=== PATIENT | female | born 1990 | race African-American/Black ===

== ENCOUNTER 2016-11-11 13:17 | Emergency (ER) | payer SELFPAY ==
[2016-11-11 13:25] VITALS: BP 151/106
--- NOTE | 2016-11-11 13:45 | ER Document Report ---
ED Blood Sugar Problem - General Mode of Arrival: Ambulatory Information source: Patient TRAVEL OUTSIDE OF THE [place] IN LAST 30 DAYS: No - HPI Onset: Other - Refer to HPI note Similar symptoms previously: Yes Recently seen / treated by doctor: No <LYNETTE TENA - Last Filed: 11/11/16 18:28> <CORINAGREGORY - Last Filed: 11/12/16 14:48> - General Chief Complaint: High Blood Sugar Stated Complaint: BLOOD SUGAR PROBLEMS Time Seen by Provider: 11/11/16 13:33 Notes: Patient is a 25 year old female presenting to the ED for high blood glucose level. Patient states she is an insulin dependent diabetic. Patient states she checked her glucose level at home on her meter and it was 325. Patient's glucose level here is 375. Patient states she takes 30 units of insulin at night and it was prescribed 2 years ago. Patient has not been to a doctor in over 2 years. Patient has had increased urination frequency, increased thirst, and nausea. Patient states she has to urinate every 10-15 minutes. Patient's last menstrual period was on 11/02/16. Patient also has a history of hypertension. patient has not been taking her lisinopril for 2 years now. Patient does not have insurance. Patient does not have a primary care physician. Patient has no known drug allergies. (LYNETTE TENA) - Related Data Allergies/Adverse Reactions: No Known Allergies Allergy (Unverified 11/11/16 13:22) Past Medical History - General Information source: Patient - Social History Smoking Status: Never Smoker Chew tobacco use (# tins/day): No Frequency of alcohol use: None Drug Abuse: None Lives with: Spouse/Significant other Family History: None Patient has suicidal ideation: No Patient has homicidal ideation: No - Past Medical History Cardiac Medical History: Reports: Hx Hypercholesterolemia, Hx Hypertension Endocrine Medical History: Reports: Hx Diabetes Mellitus Type 1 Past Surgical History: Reports: Hx Tonsillectomy - Immunizations Hx Diphtheria, Pertussis, Tetanus Vaccination: Yes - unknown <LYNETTE TENA - Last Filed: 11/11/16 18:28> Review of Systems - Review of Systems Constitutional: See HPI, Malaise EENT: No symptoms reported Cardiovascular: No symptoms reported Respiratory: No symptoms reported Gastrointestinal: See HPI, Nausea, Other - increased thirst Genitourinary: See HPI, Frequency Female Genitourinary: No symptoms reported Musculoskeletal: No symptoms reported Skin: No symptoms reported Hematologic/Lymphatic: No symptoms reported Neurological/Psychological: No symptoms reported -: Yes All other systems reviewed and negative <LYNETTE TENA - Last Filed: 11/11/16 18:28> Physical Exam - Vital signs Interpretation: Normal - General General appearance: Appears well, Alert In distress: Mild - HEENT Head: Normocephalic, Atraumatic Eyes: Normal Pupils: PERRL Mucous membranes: Dry - Respiratory Respiratory status: No respiratory distress Chest status: Nontender Breath sounds: Normal Chest palpation: Normal - Cardiovascular Rhythm: Regular Heart sounds: Normal auscultation Murmur: No - Abdominal Inspection: Normal Distension: No distension Bowel sounds: Normal Tenderness: Nontender Organomegaly: No organomegaly - Back Back: Normal, Nontender - Extremities General upper extremity: Normal inspection, Normal ROM, Normal strength General lower extremity: Normal inspection, Normal ROM, Normal strength - Neurological Neuro grossly intact: Yes Cognition: Normal Orientation: AAOx4 [place] Coma Scale Eye Opening: Spontaneous [place] Coma Scale Verbal: Oriented [place] Coma Scale Motor: Obeys Commands [place] Coma Scale Total: 15 Speech: Normal - Psychological Associated symptoms: Normal affect, Normal mood - Skin Skin Temperature: Warm Skin Moisture: Dry Skin Color: Normal <LYNETTE TENA - Last Filed: 11/11/16 18:28> Course - Laboratory Result Diagrams: 11/11/16 16:45 11/11/16 16:45 <LYNETTE TENA - Last Filed: 11/11/16 18:28> - Laboratory Result Diagrams: 11/11/16 16:45 11/11/16 16:45 <GREGORY ARRIAGA - Last Filed: 11/12/16 14:48> - Re-evaluation Re-evalutation: 11/11/16 13:46 Patient presents emergency department elevated blood sugar taken on a meter at home she has insulin-dependent diabetes but has been out of her medication for insulin and high blood pressure for 2 years she has been using her ex- insulin from 2 years ago and takes 30 units at night which was his dose. She has not seen a physician in 2 years. She is also not taken lisinopril in 2 years. She denies any headache blurred vision double earache sore throat cough chest pain shortness of breath is a little nauseated no vomiting no diarrhea fevers chills or change in appetite but a bit of increased thirst little bit of increased urination no urinary complaints and vomiting. Hypertensive with no chest pain headache blurred vision double vision strokelike symptoms has no history of renal failure and is slightly tachycardic. I have ordered insulin subcu and laboratory evaluation to discern whether or not she is in DKA. Also has a manager of case management here as she will need semiurgent follow-up with the clinic as she has no insurance and has no insulin that is her dosage. I am uncomfortable as an emergency physician starting someone on maintenance insulin without knowing her history. And so the manager of case management will attempt to try to get a reasonable follow-up appointment with her I told her I will write her for 10 days with the lisinopril which she states she can afford. 11/11/16 16:19 Patient is well-appearing nontoxic not in DKA manager of case management has set up an outpatient follow-up appointment with her I have given her a one-week supply of her blood pressure medication. No need to emergently treat the blood pressure there is no signs of endorgan damage strokelike symptoms cardiac ischemia chronic renal failure patient is discharged follow-up to return for increasing worsening any symptoms (GREGORY ARRIAGA) - Vital Signs Vital signs: Temp Pulse Resp BP Pulse Ox 98.3 F 119 H 18 151/106 H 97 11/11/16 13:23 11/11/16 13:23 11/11/16 13:23 11/11/16 13:23 11/11/16 13:23 - Laboratory Laboratory results interpreted by me: 11/11/16 11/11/16 11/11/16 13:25 14:44 16:45 RBC 6.21 H Hgb 15.6 H Hct 48.4 H MCV 78 L MCH 25.1 L Glucose POC Glucose 373 H Calcium Urine Glucose (UA) >=500 H Urine Ketones TRACE H 11/11/16 16:45 RBC Hgb Hct MCV MCH Glucose 297 H POC Glucose Calcium 10.4 H Urine Glucose (UA) Urine Ketones Discharge <LYNETTE TENA - Last Filed: 11/11/16 18:28> <GREGORY ARRIAGA - Last Filed: 11/12/16 14:48> - Discharge Clinical Impression: Hyperglycemia Condition: Stable Disposition: HOME, SELF-CARE Additional Instructions: Hyperglycemia (High Blood Sugar) You have an abnormally high blood sugar. Not all high blood sugar requires long-term treatment. High blood sugar can be due to medications, , or the stress of illness. (These cases are "borderline diabetes.") If the doctor feels your high blood sugar might resolve with time, you may not require treatment now. You will be scheduled for further evaluation. It's very important that you follow through, to see if the blood sugar returns to normal levels. Uncontrolled high blood sugar leads to early heart disease, strokes, nerve damage, eye damage, and kidney damage. Call the physician if there is faintness, excess sleepiness, or very rapid breathing. Prescriptions: Lisinopril/Hydrochlorothiazide [Lisinopril-Hctz 10-12.5 mg Tab] 1 each PO DAILY #12 tablet Forms: Elevated Blood Pressure Referrals: [facility] [Provider Group] - Follow up as needed Scribe Attestation: 11/11/16 16:18 I personally performed the services described in the documentation reviewed the documentation recorded by my scribe in my presence and it accurately and completely records my words and actions (GREGORY ARRIAGA) Scribe Documentation - Scribe Written by Chantale:: Chantale Sherman 11/11/16 18:28 acting as scribe for :: CORINA <LYNETTE TENA - Last Filed: 11/11/16 18:28>
[2016-11-11] MEDS ORDERED: INSULIN REG, HUMAN 100 UNIT/ML 3 ML VIAL (PYX) SUBCUT ONE (13:46)
[2016-11-11 15:38] LABS: VENOUS BLOOD BASE EXCESS 0.4 mmol/L; VENOUS BLOOD PCO2 50.4 mmHg (35-63); VENOUS BLOOD PH 7.35 (7.30-7.42)
[2016-11-11 15:51] LABS: APPEARANCE,URINE SLIGHTLY-CLOUDY; BILIRUBIN,URINE NEGATIVE (NEGATIVE); GLUCOSE, URINE >=500 mg/dL (NEGATIVE); KETONES,URINE TRACE mg/dL (NEGATIVE); LEUKOCYTE ESTERASE,URINE NEGATIVE (NEGATIVE); NITRITE,URINE NEGATIVE (NEGATIVE); PROTEIN,URINE NEGATIVE (NEGATIVE); URINE SPECIFIC GRAVITY 1.033; UROBILINOGEN,URINE NEGATIVE mg/dL (<2.0)
[2016-11-11 16:04] LABS: WBC,URINE 0-1 /HPF
[2016-11-11 16:05] LABS: BACTERIA,URINE TRACE /HPF
[2016-11-11 16:55] LABS: ABSOLUTE BASOPHILS # (AUTO) 0.1 10^3/uL (0.0-0.2); ABSOLUTE EOSINOPHILS # (AUTO) 0.1 10^3/uL (0.0-0.6); ABSOLUTE LYMPHOCYTES (AUTO) 3.6 10^3/uL (0.5-4.7); ABSOLUTE MONOCYTES (AUTO) 0.6 10^3/uL (0.1-1.4); ABSOLUTE NEUT (AUTO) 5.7 10^3/uL (1.7-8.2); BASOPHILS % (AUTO) 0.9 % (0-2); EOSINOPHILS % (AUTO) 0.7 % (0-6); HEMATOCRIT 48.4 % (36.0-47.0); HEMOGLOBIN 15.6 g/dL (12.0-15.5); HGB HCT DIFFERENCE -1.6; LYMPHOCYTES % (AUTO) 35.8 % (13-45); MEAN CORPUSCULAR HEMOGLOBIN 25.1 pg (27.0-33.4); MEAN CORPUSCULAR HGB CONC 32.2 g/dL (32.0-36.0); MEAN CORPUSCULAR VOLUME 78 fl (80-97); MONOCYTES % (AUTO) 5.8 % (3-13); RED BLOOD COUNT 6.21 10^6/uL (3.72-5.28); RED CELL DISTRIBUTION WIDTH 13.7 % (11.5-14.0); SEGMENTED NEUTROPHILS % (AUTO) 56.8 % (42-78); WHITE BLOOD COUNT 10.1 10^3/uL (4.0-10.5)
[2016-11-11 17:17] LABS: ALANINE AMINOTRANSFERASE 22 U/L (9-52); ALBUMIN 4.7 g/dL (3.5-5.0); ALKALINE PHOSPHATASE 112 U/L (38-126); ANION GAP 16 (5-19); ASPARTATE AMINO TRANSFERASE 15 U/L (14-36); BILIRUBIN,DIRECT 0.3 mg/dL (0.0-0.4); BILIRUBIN,TOTAL 0.6 mg/dL (0.2-1.3); BLOOD UREA NITROGEN 15 mg/dL (7-20); CALCIUM 10.4 mg/dL (8.4-10.2); CARBON DIOXIDE 23 mmol/L (22-30); CHLORIDE 100 mmol/L (98-107); GLUCOSE 297 mg/dL (75-110); LIPASE 114.1 U/L (23-300); POTASSIUM 4.4 mmol/L (3.6-5.0); SODIUM 139.2 mmol/L (137-145); TOTAL PROTEIN 8.2 g/dL (6.3-8.2)
== END 2016-11-11 17:00 | disposition home or self-care (01) ==
LOC: ER 13:17
DX: E10.65 Type 1 diabetes mellitus with hyperglycemia (principal); R11.0 Nausea; Z79.4 Long term (current) use of insulin; E78.00 Pure hypercholesterolemia, unspecified; I10 Essential (primary) hypertension
CPT/HCPCS: 99284; 36415; 82962; 83690; 85025; 80053; 81001; 82803; J1815

== ENCOUNTER → 2016-12-02 | Outpatient (CLI) | payer OTHER ==
[2016-12-02 11:54] LABS: ABSOLUTE BASOPHILS # (AUTO) 0.1 10^3/uL (0.0-0.2); ABSOLUTE EOSINOPHILS # (AUTO) 0.1 10^3/uL (0.0-0.6); ABSOLUTE LYMPHOCYTES (AUTO) 4.8 10^3/uL (0.5-4.7); ABSOLUTE MONOCYTES (AUTO) 0.7 10^3/uL (0.1-1.4); ABSOLUTE NEUT (AUTO) 5.2 10^3/uL (1.7-8.2); BASOPHILS % (AUTO) 0.7 % (0-2); EOSINOPHILS % (AUTO) 0.8 % (0-6); HEMATOCRIT 41.9 % (36.0-47.0); HEMOGLOBIN 13.6 g/dL (12.0-15.5); HGB HCT DIFFERENCE -1.1; LYMPHOCYTES % (AUTO) 44.2 % (13-45); MEAN CORPUSCULAR HGB CONC 32.4 g/dL (32.0-36.0); MEAN CORPUSCULAR VOLUME 77 fl (80-97); RED BLOOD COUNT 5.42 10^6/uL (3.72-5.28); RED CELL DISTRIBUTION WIDTH 13.6 % (11.5-14.0); SEGMENTED NEUTROPHILS % (AUTO) 48.3 % (42-78); WHITE BLOOD COUNT 10.9 10^3/uL (4.0-10.5)
[2016-12-02 12:22] LABS: ALANINE AMINOTRANSFERASE 16 U/L (9-52); ALBUMIN 4.1 g/dL (3.5-5.0); ALKALINE PHOSPHATASE 110 U/L (38-126); ANION GAP 13 (5-19); ASPARTATE AMINO TRANSFERASE 12 U/L (14-36); BILIRUBIN,DIRECT 0.3 mg/dL (0.0-0.4); BILIRUBIN,TOTAL 0.5 mg/dL (0.2-1.3); BLOOD UREA NITROGEN 10 mg/dL (7-20); CALCIUM 9.5 mg/dL (8.4-10.2); CARBON DIOXIDE 24 mmol/L (22-30); CHLORIDE 103 mmol/L (98-107); CHOLESTEROL 224.85 mg/dL (0-200); CREATININE RESULT 0.58 mg/dL (0.52-1.25); Direct HDL 38 mg/dL (>40); GLUCOSE 310 mg/dL (75-110); POTASSIUM 4.5 mmol/L (3.6-5.0); SODIUM 140.1 mmol/L (137-145); TOTAL PROTEIN 7.1 g/dL (6.3-8.2); TRIGLYCERIDES 106 mg/dL (<150)
[2016-12-02 12:33] LABS: DIRECT LDL 183 mg/dL (<100)
== END ==
LOC: CCC 11:14
DX: E11.8 Type 2 diabetes mellitus with unspecified complications (principal)
CPT/HCPCS: 36415; 80053; 80061; 83036; 84443; 85025

== ENCOUNTER → 2017-04-20 | Outpatient (CLI) | payer OTHER | LOC: CCC 14:41 | DX: E10.8 Type 1 diabetes mellitus with unspecified complications (principal) | CPT/HCPCS: 36415; 83036 ==